=== PATIENT | female | born 1955 | race Caucasian/White ===

== ENCOUNTER 2020-10-17 14:42 | Observation (INO) | payer MEDICARE, OTHER ==
[~2020-10-17] VITALS: Ht 165.1 cm; Wt 92.8 kg
[2020-10-17 15:56] LABS: RED BLOOD COUNT 4.06 M/UL (4.00-5.10); WHITE BLOOD COUNT 3.8 K/UL (4.5-11.0)
[2020-10-17 16:23] LABS: BUN/CREATININE RATIO 16 (0-10)
[2020-10-18 03:24] LABS: HEMOGLOBIN 11.5 gm/dl (12.3-15.3); RED BLOOD COUNT 3.93 M/UL (4.00-5.10)
[2020-10-18 03:41] LABS: BUN/CREATININE RATIO 16 (0-10)
[2020-10-18] MEDS ORDERED: FUROSEMIDE40 MG PO (10:16)
[2020-10-18] MEDS ORDERED: HYDROCODONE-AC1 EAC1 PO (10:16)
[2020-10-18] MEDS ORDERED: LISINOPRIL40 MG PO (10:23)
[2020-10-18] MEDS ORDERED: BUSPAR 10MG10 MG PO (10:26)
[2020-10-18] MEDS ORDERED: JARDIANCE25 MG PO (10:44)
[2020-10-18] MEDS ORDERED: GLIMEPIRIDE4 MG PO (10:44)
[2020-10-18] MEDS ORDERED: ROPINIROLE HCL4 MG PO (10:45)
[2020-10-18] MEDS ORDERED: BENTYL 10MG CAP10 MG PO (10:47)
[2020-10-18] MEDS ORDERED: OMEPRAZOLE-BIC1 EAC1 PO (10:49)
[2020-10-18] MEDS ORDERED: CYMBALTA60 MG PO (11:44)
[2020-10-18] MEDS ORDERED: PROZAC 20 MG CA20 MG PO (11:46)
[2020-10-18] MEDS ORDERED: FLONASE 0.05% N16 GM (11:47)
[2020-10-18] MEDS ORDERED: VITAMIN D21250 MCG PO (11:47)
[2020-10-18] MEDS ORDERED: SUMATRIPTAN5 MG (11:48)
[2020-10-18] MEDS ORDERED: FOSAMAX70 MG PO (11:48)
[2020-10-18] MEDS ORDERED: CARBIDOPA-LEVO1 EA14 PO (11:49)
[2020-10-18] MEDS ORDERED: LYRICA25 MG PO (11:50)
[2020-10-18] MEDS ORDERED: CARAFATE1 GM PO (11:51)
[2020-10-18] MEDS ORDERED: ALBUTEROL2.5 MG/3 M INH (11:52)
[2020-10-18] MEDS ORDERED: PROAIR HFA8.5 GM INH (11:52)
--- NOTE | 2020-10-19 12:20 | NUR ---
INSTRUCTED ON CHEST PAIN, FOLLOW UP APPOINTMENTS. VERBALIZED UNDERSTANDING. TERRY CHICAS R.N.
== END 2020-10-19 19:25 | disposition home or self-care (01) ==
LOC: ER1 14:42 → CDU 17:07 → MED SURG 4 17:07
PROVIDERS: Emergency Medicine; Physician Assistant; ADMIT Internal Medicine
DX: R07.89 Other chest pain (principal); D50.9 Iron deficiency anemia, unspecified; F41.9 Anxiety disorder, unspecified; I11.9 Hypertensive heart disease without heart failure; E11.9 Type 2 diabetes mellitus without complications; E78.5 Hyperlipidemia, unspecified; G89.29 Other chronic pain; K21.9 Gastro-esophageal reflux disease without esophagitis; Z98.51 Tubal ligation status; K44.9 Diaphragmatic hernia without obstruction or gangrene; K27.9 Peptic ulcer, site unspecified, unspecified as acute or chronic, without hemorrhage or perforation; E66.9 Obesity, unspecified; Z79.899 Other long term (current) drug therapy; M79.7 Fibromyalgia; M51.16 Intervertebral disc disorders with radiculopathy, lumbar region; Z88.6 Allergy status to analgesic agent; Z88.8 Allergy status to other drugs, medicaments and biological substances; Z68.34 Body mass index [BMI] 34.0-34.9, adult; Z79.84 Long term (current) use of oral hypoglycemic drugs; Z20.822 Contact with and (suspected) exposure to COVID-19; R00.1 Bradycardia, unspecified; I08.3 Combined rheumatic disorders of mitral, aortic and tricuspid valves; I31.3 Pericardial effusion (noninflammatory)
CPT/HCPCS: ECHO; 36415; 71045; 78452; 80048; 80053; 82550; 82553; 82962; 83735; 83874; 83880; 84100; 84484; 85025; 85379; 85610; 85730; 93005; 93017; 93306; 96374; 99285; A9502; G0378; J0360; J2785; Q9967; U0002

== ENCOUNTER → 2021-03-27 | Outpatient (CLI) | payer MEDICARE, OTHER ==
[~2021-03-27] MED LIST: ALBUTEROL2.5 MG/3 M INH; BENTYL 10MG CAP10 MG PO; BUSPAR 10MG10 MG PO; CARAFATE1 GM PO; CARBIDOPA-LEVO1 EA14 PO; CYMBALTA60 MG PO; FLONASE 0.05% N16 GM; FOSAMAX70 MG PO; FUROSEMIDE40 MG PO; GLIMEPIRIDE4 MG PO; HYDROCODONE-AC1 EAC1 PO; JARDIANCE25 MG PO; LISINOPRIL40 MG PO; LYRICA25 MG PO; OMEPRAZOLE-BIC1 EAC1 PO; PROAIR HFA8.5 GM INH; PROZAC 20 MG CA20 MG PO; ROPINIROLE HCL4 MG PO; SUMATRIPTAN5 MG; VITAMIN D21250 MCG PO
== END ==
LOC: HEART 5 14:30
DX: I10 Essential (primary) hypertension (principal)
CPT/HCPCS: 93306

== ENCOUNTER → 2021-12-05 | Outpatient (CLI) | payer MEDICARE, OTHER | LOC: HEART 5 10:26 | DX: R00.2 Palpitations (principal) ==